=== PATIENT | male | born 2000 | race Two or more races ===

== ENCOUNTER 2021-02-18 19:33 | Inpatient (IN) | payer OTHER ==
[~2021-02-18] VITALS: Ht 175.3 cm; Wt 102.5 kg
[2021-02-18] MEDS ORDERED: ONDANSETRON PF 4 MG/2 ML VIAL. ONE (20:10)
[2021-02-18 20:13] LABS: BASO % 0 % (0-3); EOS % 0 % (0-3); HEMATOCRIT 50.2 % (39.0-53.0); HEMOGLOBIN 17.7 g/dL (13.0-17.5); LYMPH % 19 % (24-48); MEAN CORPUSCULAR HEMOGLOBIN 33 pg (25-35); MEAN CORPUSCULAR HGB CONC 35 g/dL (31-37); MEAN CORPUSCULAR VOLUME 93 fL (79-100); MONO # 0.7 x10^3/uL (0.0-1.1); MONO % 7 % (0-9); NEUT % 74 % (31-73); PLATELET COUNT 268 x10^3/uL (140-400); RED BLOOD COUNT 5.43 x10^6/uL (4.30-5.70); RED CELL DISTRIBUTION WIDTH 13.6 % (11.5-14.5); WHITE BLOOD COUNT 10.8 x10^3/uL (4.0-11.0)
[2021-02-18] MEDS ORDERED: IV NORMAL SALINE 1000ML BAG 1,000 ML IV ONE ×2 (20:30→21:30)
[2021-02-18] MEDS ORDERED: ONDANSETRON PF 4 MG/2 ML VIAL. IVP ONE (20:30)
--- NOTE | 2021-02-18 20:44 | PHYS DOC ---
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 Patient denies any diarrhea. Reports subjective fevers. Denies any use of alcohol or drugs. States he could be constipated. (THEODORE FREITAS CLIENT SERVICE MANAGER) Review of Systems: Review of Systems: Constitutional: Reports subjective fevers Eyes: Denies change in visual acuity. [] HENT: Denies nasal congestion or sore throat. [] Respiratory: Denies cough or shortness of breath. [] Cardiovascular: Denies chest pain or edema. [] GI: Reports abdominal pain, nausea and vomiting, denies diarrhea : Denies dysuria. [] Musculoskeletal: Denies back pain or joint pain. [] Integument: Denies rash. [] Neurologic: Denies headache, focal weakness or sensory changes. [] Psychiatric: Denies depression or anxiety. [] (THEODORE FREITAS CLIENT SERVICE MANAGER) Heart Score: C/O Chest Pain: N/A Risk Factors: Risk Factors: DM, Current or recent (<one month) smoker, HTN, HLP, family history of CAD, obesity. Risk Scores: Score 0 - 3: 2.5% MACE over next 6 weeks - Discharge Home Score 4 - 6: 20.3% MACE over next 6 weeks - Admit for Clinical Observation Score 7 - 10: 72.7% MACE over next 6 weeks - Early Invasive Strategies (THEODORE FREITAS CLIENT SERVICE MANAGER) Current Medications: Current Medications Medications (Trade) Dose Ordered Sig/Ghulam Start Time Stop Time Status Last Admin Dose Admin Ondansetron HCl (Zofran) 4 mg STK-MED ONCE 02/18/21 20:10 02/18/21 20:11 DC Sodium Chloride 1,000 ml @ 1,000 mls/hr 1X ONCE 02/18/21 20:30 02/18/21 21:29 02/18/21 20:14 1,000 MLS/HR (THEODORE FREITAS CLIENT SERVICE MANAGER) Allergies: Allergies: Allergies Coded Allergies Type Severity Reaction Last Updated Verified Penicillins Allergy Intermediate 02/18/21 Yes (THEODORE FREITAS CLIENT SERVICE MANAGER) Physical Exam: PE: Constitutional: Well developed, well nourished, no acute distress, non-toxic appearance. [] HENT: Normocephalic, atraumatic, bilateral external ears normal, oropharynx moist, no oral exudates, nose normal. [] Eyes: PERRLA, EOMI, conjunctiva normal, no discharge. [] Neck: Normal range of motion, no tenderness, supple, no stridor. [] Cardiovascular: Tachycardic Lungs & Thorax: Kussmaul breathing Abdomen: Bowel sounds normal, soft, no tenderness, no masses, no pulsatile mass es. [] Skin: Warm, dry, no erythema, no rash. [] Back: No tenderness, no CVA tenderness. [] Extremities: No tenderness, no cyanosis, no clubbing, ROM intact, no edema. [] Neurologic: Alert and oriented X 3, normal motor function, normal sensory function, no focal deficits noted. [] Psychologic: Restless (THEODORE FREITAS CLIENT SERVICE MANAGER) Current Patient Data: Labs: Laboratory Tests Test 02/18/21 19:55 White Blood Count 10.8 x10^3/uL (4.0-11.0) Red Blood Count 5.43 x10^6/uL (4.30-5.70) Hemoglobin 17.7 g/dL (13.0-17.5) H Hematocrit 50.2 % (39.0-53.0) Mean Corpuscular Volume 93 fL (79-100) Mean Corpuscular Hemoglobin 33 pg (25-35) Mean Corpuscular Hemoglobin Concent 35 g/dL (31-37) Red Cell Distribution Width 13.6 % (11.5-14.5) Platelet Count 268 x10^3/uL (140-400) Neutrophils (%) (Auto) 74 % (31-73) H Lymphocytes (%) (Auto) 19 % (24-48) L Monocytes (%) (Auto) 7 % (0-9) Eosinophils (%) (Auto) 0 % (0-3) Basophils (%) (Auto) 0 % (0-3) Neutrophils # (Auto) 8.0 x10^3/uL (1.8-7.7) H Lymphocytes # (Auto) 2.0 x10^3/uL (1.0-4.8) Monocytes # (Auto) 0.7 x10^3/uL (0.0-1.1) Eosinophils # (Auto) 0.0 x10^3/uL (0.0-0.7) Basophils # (Auto) 0.0 x10^3/uL (0.0-0.2) Laboratory Tests 02/18/21 19:55 Vital Signs: Vital Signs Date Time Temp Pulse Resp B/P (MAP) Pulse Ox O2 Delivery O2 Flow Rate FiO2 02/18/21 20:04 97.7 148 30 157/88 (111) 99 Room Air 97.7 (THEODORE FREITAS CLIENT SERVICE MANAGER) EKG: EKG: [] (THEODORE FREITAS CLIENT SERVICE MANAGER) Radiology/Procedures: Radiology/Procedures: []PROCEDURE: ACUTE ABDOMEN SERIES Acute abdominal series with PA chest portable at 2020: Reason for examination: Abdominal pain, fever and constipation. The heart size is normal. Mediastinum is unremarkable. Lung moreno are clear. There is however elevation of the right hemidiaphragm. No acute bony abnormalities are seen. Left venous catheter appears be present with the tip at the superior vena cava. No pneumothorax is seen. There is no gross organomegaly. Psoas muscles are symmetric. Bowel gas pattern is nonspecific with a large amount of fecal material in colon. No obstruction is evident. No abnormal calcifications are seen. No acute bony abnormalities are seen. IMPRESSION: No acute cardiopulmonary disease. Large amount fecal material within the colon but no evidence of obstruction. Electronically signed by: Geraldine Garcia MD (02/18/2021 10:19 PM) [facility] DI[facility]ATED and SIGNED BY: GERALDINE GARCIA MD DATE: 02/18/21 [id number] (THEODORE FREITAS CLIENT SERVICE MANAGER) Course & Med Decision Making: Course & Med Decision Making Pertinent Labs and Imaging studies reviewed. (See chart for details) This is a 20-year-old male patient presented to the ED today with complaints of nausea, vomiting, abdominal pain, symptoms began today. CMP with glucose of 596, anion gap is 33, CO2 7. Negative rapid Covid test, negative influenza A and B Was started on IV fluids, insulin drip. Acute abdominal series noted for constipation. Given Dulcolax in the ED, will try mag citrate once his vomiting is under control Spoke with Dr. Mcdonald who accepted patient for admission (THEODORE FREITAS APRN) Dragon Disclaimer: Dragon Disclaimer: This electronic medical record was generated, in whole or in part, using a voice recognition dictation system. (THEODORE FREITAS APRN) Departure Departure Impression: Primary Impression: DKA, type 1 Qualified Codes: E10.10 - Type 1 diabetes mellitus with ketoacidosis without coma Additional Impressions: Nausea and vomiting Qualified Codes: R11.2 - Nausea with vomiting, unspecified Constipation Qualified Codes: K59.00 - Constipation, unspecified Disposition: ADMITTED INPATIENT Condition: STABLE Referrals: UNKNOWN PCP NAME (PCP) Attending Signature Attending Signature I have reviewed the PA/EQUIPMENT SCHEDULER's note and plan of care. I was available for con sultation as needed during the patient's visit in the emergency department. I agree with the clinical impression, plan, and disposition. (OSCAR MENDOZA DO) THEODORE FREITAS APRN Feb 18, 2021 20:44 OSCAR MENDOZA DO Feb 18, 2021 23:30
[2021-02-18 20:59] LABS: ALBUMIN 5.1 g/dL (3.4-5.0); ALBUMIN/GLOBULIN RATIO 1.1 (1.0-1.7); CREATININE 1.4 mg/dL (0.7-1.3); GFR 64.6; POTASSIUM 4.4 mmol/L (3.5-5.1); TOTAL BILIRUBIN 0.8 mg/dL (0.2-1.0); TOTAL PROTEIN 9.8 g/dL (6.4-8.2)
[2021-02-18] MEDS ORDERED: POTASSIUM CHLORIDE 10MEQ 100 ML IV PRN ×2 (21:30)
[2021-02-18 21:32] LABS: INFLUENZA A PATIENT NEGATIVE (NEGATIVE); INFLUENZA B PATIENT NEGATIVE (NEGATIVE)
[2021-02-18] MEDS: METOCLOPRAMIDE HCL 10 MG/2 ML VIAL. IVP ONE ×2 (21:35→21:40)
[2021-02-18] MEDS: INSULIN REGULAR VIAL 100 UNIT in IV NORMAL SALINE 100ML 100 ML IV PRN (21:54)
[2021-02-18 22:06] LABS: BILIRUBIN,URINE NEGATIVE (NEG); CLARITY,URINE CLEAR; COLOR,URINE YELLOW; NITRITE,URINE NEGATIVE (NEG); PH,URINE 5.5 (<5.0-8.0); PROTEIN,URINE 100 mg/dL (NEG-TRACE); UROBILINOGEN,URINE 0.2 mg/dL (0.2 mg/dL)
[2021-02-18 22:12] LABS: BARBITURATES NEG (NEG); BENZODIAZEPINES NEG (NEG); CANNABINOIDS NEG (NEG); COCAINE NEG (NEG); METHADONE NEG (NEG); OPIATES NEG (NEG); PHENCYCLIDINE NEG (NEG)
[2021-02-18 22:18] LABS: AMPHETAMINE/METHAMPHETAMINE NEG (NEG)
--- NOTE | 2021-02-18 22:21 | RAD ---
Acute abdominal series with PA chest portable at 2020: Reason for examination: Abdominal pain, fever and constipation. The heart size is normal. Mediastinum is unremarkable. Lung moreno are clear. There is however elevat ion of the right hemidiaphragm. No acute bony abnormalities are seen. Left venous catheter appears be present with the tip at the superior vena cava. No pneumothorax is seen. There is no gross organomegaly. Psoas muscles are symmetric. Bowel gas pattern is nonspecific with a large amount of fecal material in colon. No obstruction is evident. No abnormal calcifications are se en. No acute bony abnormalities are seen. IMPRESSION: No acute cardiopulmonary disease. Large amount fecal material within the colon but no evidence of obstruction. Electronically signed by: Geraldine Katz MD (02/18/2021 10:19 PM) ROSS
[2021-02-18 22:22] LABS: BACTERIA,URINE 0 /HPF (0-FEW); WBC,URINE 0 /HPF (0-4)
[2021-02-18] MEDS ORDERED: METOCLOPRAMIDE HCL 10 MG/2 ML VIAL. IVP PRN (22:30)
[2021-02-18] MEDS ORDERED: fentaNYL PF VIAL 100 MCG/2 ML VIAL IVP PRN (22:30)
[2021-02-18] MEDS ORDERED: ACETAMINOPHEN 325 MG TABLET. PO PRN (22:30)
[2021-02-18] MEDS ORDERED: ONDANSETRON PF 4 MG/2 ML VIAL. IVP PRN (22:30)
[2021-02-18] MEDS ORDERED: DEXTROSE 50% 25 GM / 50ML DISP.SYRIN. IV PRN (22:30)
[2021-02-18 22:47] LABS: MAGNESIUM 2.6 mg/dL (1.8-2.4); PHOSPHORUS 5.1 mg/dL (2.6-4.7)
[2021-02-18] MEDS ORDERED: MAGNESIUM CITRATE 296 ML SOLUTION. PO ONE (23:00)
[2021-02-19] MEDS: IV NORMAL SALINE 1000ML BAG 1,000 ML IV SCH ×3 (00:02→23:12)
[2021-02-19 00:50] LABS: CALCIUM 8.6 mg/dL (8.5-10.1); CREATININE 1.2 mg/dL (0.7-1.3); GFR 77.2; POTASSIUM 3.8 mmol/L (3.5-5.1)
[2021-02-19 01:11] LABS: MAGNESIUM 2.6 mg/dL (1.8-2.4); PHOSPHORUS 2.3 mg/dL (2.6-4.7)
[2021-02-19] MEDS: POTASSIUM CHLORIDE 10MEQ 100 ML IV PRN ×2 (02:21→03:28)
[2021-02-19] MEDS ORDERED: IV DEXTROSE 5 %-0.45 % NACL 1,000 ML IV ONE ×2 (03:30→18:00)
[2021-02-19 04:44] LABS: CALCIUM 8.1 mg/dL (8.5-10.1); CREATININE 0.9 mg/dL (0.7-1.3); GFR 107.6; POTASSIUM 3.6 mmol/L (3.5-5.1)
[2021-02-19 04:47] LABS: MAGNESIUM 2.2 mg/dL (1.8-2.4); PHOSPHORUS 0.8 mg/dL (2.6-4.7)
[2021-02-19] MEDS: IV DEXTROSE 5% - 0.9 % NACL 1,000 ML IV SCH ×4 (08:18→21:48)
--- NOTE | 2021-02-19 09:02 | PDOC1 ---
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 Denies any fevers, chest pain, drug use, diarrhea, constipation, hematuria or dysuria or skin infections. Patient does not know his father's side and whether he or the family has diabetes. Mother side has no history of diabetes. Past Medical/Surgical History: PMH/PSH: Additional Past Medical Histor: "TUMOR ON MY SPINE" Past Surgical History: SPINE TUMOR REMOVAL Smoking Status: Never Smoker Alcohol Use: None Allergies: Allergies: Coded Allergies: Penicillins (Verified Allergy, Intermediate, 02/18/21) Family History: Family History: Reviewed with no relevant findings in the chart Social History: Social History: Smoking Status: Never Smoker Alcohol Use: None Current Medications: Current Medications Current Medications Sodium Chloride 1,000 ml @ 1,000 mls/hr 1X ONCE IV Last administered on 02/18/21at 20:14; Start 02/18/21 at 20:30; Stop 02/18/21 at 21:29; Status DC Ondansetron HCl (Zofran) 4 mg 1X ONCE IVP Last administered on 02/18/21at 20:14; Start 02/18/21 at 20:30; Stop 02/18/21 at 20:31; Status DC Ondansetron HCl (Zofran) 4 mg STK-MED ONCE .ROUTE ; Start 02/18/21 at 20:10; Stop 02/18/21 at 20:11; Status DC Metoclopramide HCl (Reglan Vial) 10 mg 1X ONCE IVP Last administered on 02/18/21at 21:40; Start 02/18/21 at 21:30; Stop 02/18/21 at 21:31; Status DC Sodium Chloride 1,000 ml @ 1,000 mls/hr 1X ONCE IV Last administered on 02/18/21at 21:35; Start 02/18/21 at 21:30; Stop 02/18/21 at 22:29; Status DC Sodium Chloride 1,000 ml @ 250 mls/hr Q4H IV Last administered on 02/19/21at 00:02; Start 02/18/21 at 22:00 Insulin Human Regular 100 unit/ Sodium Chloride 101 ml @ 0 mls/hr CONT PRN PRN IV PER PROTOCOL Last administered on 02/18/21at 21:54; Start 02/18/21 at 21:30 Potassium Chloride/Water 100 ml @ 100 mls/hr PRN Q1HR PRN IV SEE COMMENTS; Start 02/18/21 at 21:30 Potassium Chloride/Water 100 ml @ 100 mls/hr PRN Q1HR PRN IV SEE COMMENTS Last administered on 02/19/21at 03:28; Start 02/18/21 at 21:30 Potassium Chloride/Water 100 ml @ 100 mls/hr PRN Q1HR PRN IV SEE COMMENTS; Start 02/18/21 at 21:30 Ondansetron HCl (Zofran) 4 mg PRN Q8HRS PRN IVP NAUSEA/VOMITING 1ST CHOICE; Start 02/18/21 at 22:30; Stop 02/19/21 at 22:29 Fentanyl Citrate (Fentanyl 2ml Vial) 50 mcg PRN Q1HR PRN IVP SEVERE PAIN 7-10; Start 02/18/21 at 22:30; Stop 02/19/21 at 22:29 Acetaminophen (Tylenol) 650 mg PRN Q4HRS PRN PO FEVER > 100.3'F; Start 02/18/21 at 22:30; Stop 02/19/21 at 22:29 Magnesium Citrate (Citroma) 296 ml 1X ONCE PO Last administered on 02/19/21at 00:10; Start 02/18/21 at 23:00; Stop 02/18/21 at 23:01; Status DC Metoclopramide HCl (Reglan Vial) 10 mg PRN Q6HRS PRN IVP NAUSEA/VOMITING 2ND CHOICE Last administered on 02/19/21at 00:10; Start 02/18/21 at 22:30 Dextrose (Dextrose 50%-Water Syringe) 12.5 gm PRN Q15MIN PRN IV SEE COMMENTS; Start 02/18/21 at 22:30 Lorazepam (Ativan Inj) 1 mg 1X ONCE IVP Last administered on 02/19/21at 00:44; Start 02/19/21 at 01:00; Stop 02/19/21 at 01:01; Status DC Dextrose/Sodium Chloride 1,000 ml @ 250 mls/hr 1X ONCE IV Last administered on 02/19/21at 03:28; Start 02/19/21 at 03:30; Stop 02/19/21 at 07:29; Status DC Dextrose/Sodium Chloride 1,000 ml @ 250 mls/hr Q4H IV Last administered on 02/19/21at 08:18; Start 02/19/21 at 08:15 ROS: Review of Systems Review of System REVIEW OF SYSTEMS: GENERAL: Denies weakness SKIN: No bruising, hair changes or rashes. EYES: No blurred, double or loss of vision. NOSE AND THROAT: No history of nosebleeds, hoarseness or sore throat. HEART: No history of palpitations, chest pain or shortness of breath on exertion. LUNGS: Denies cough, hemoptysis, wheezing or shortness of breath. GASTROINTESTINAL: Denies changes in appetite, nausea, vomiting, diarrhea or constipation. GENITOURINARY: No history of frequency, urgency, hesitancy or nocturia. NEUROLOGIC: Denies history of numbness, tingling, or tremor. PSYCHIATRIC: No history of panic, anxiety or depression. ENDOCRINE: No history of heat or cold intolerance, polyuria or polydipsia. EXTREMITIES: Denies joint pain, pain on walking or stiffness. Physical Exam: Vital Signs: Vital Signs Date Time Temp Pulse Resp B/P (MAP) Pulse Ox O2 Delivery O2 Flow Rate FiO2 02/19/21 06:45 110 22 145/72 (96) 98 Room Air 02/18/21 20:04 97.7 97.7 Physcial Exam: General: Well developed, well nourished, no acute distress, well appearing HEENT: Pupils equally round and reactive to light, EOMI, no discharge, normal conjunctiva Neck: Supple, no nuchal rigidity, no JVD, trachea midline, no tenderness Cardiac: RRR, no murmurs, no gallops, no rubs Chest/Lungs: CTAB, no wheeze, no rhonchi, no crackles Abdomen: soft, non-distended, no guarding, no peritoneal signs, non-tender Back: No tenderness Extremities: no edema, pulses intact, non-tender,capillary refill <3 sec bilateral upper and lower extremities, Neuro: Alert and oriented x 4, no focal deficits, normal speech Labs: Labs: Laboratory Tests Test 02/18/21 19:55 02/18/21 20:15 02/18/21 21:50 02/18/21 22:54 White Blood Count 10.8 x10^3/uL (4.0-11.0) Red Blood Count 5.43 x10^6/uL (4.30-5.70) Hemoglobin 17.7 g/dL (13.0-17.5) Hematocrit 50.2 % (39.0-53.0) Mean Corpuscular Volume 93 fL (79-100) Mean Corpuscular Hemoglobin 33 pg (25-35) Mean Corpuscular Hemoglobin Concent 35 g/dL (31-37) Red Cell Distribution Width 13.6 % (11.5-14.5) Platelet Count 268 x10^3/uL (140-400) Neutrophils (%) (Auto) 74 % (31-73) Lymphocytes (%) (Auto) 19 % (24-48) Monocytes (%) (Auto) 7 % (0-9) Eosinophils (%) (Auto) 0 % (0-3) Basophils (%) (Auto) 0 % (0-3) Neutrophils # (Auto) 8.0 x10^3/uL (1.8-7.7) Lymphocytes # (Auto) 2.0 x10^3/uL (1.0-4.8) Monocytes # (Auto) 0.7 x10^3/uL (0.0-1.1) Eosinophils # (Auto) 0.0 x10^3/uL (0.0-0.7) Basophils # (Auto) 0.0 x10^3/uL (0.0-0.2) Sodium Level 133 mmol/L (136-145) Potassium Level 4.4 mmol/L (3.5-5.1) Chloride Level 93 mmol/L (98-107) Carbon Dioxide Level 7 mmol/L (21-32) Anion Gap 33 (6-14) Blood Urea Nitrogen 13 mg/dL (8-26) Creatinine 1.4 mg/dL (0.7-1.3) Estimated GFR (Cockcroft-Gault) 64.6 BUN/Creatinine Ratio 9 (6-20) Glucose Level 596 mg/dL (70-99) Calcium Level 9.0 mg/dL (8.5-10.1) Phosphorus Level 5.1 mg/dL (2.6-4.7) Magnesium Level 2.6 mg/dL (1.8-2.4) Total Bilirubin 0.8 mg/dL (0.2-1.0) Aspartate Amino Transf (AST/SGOT) 48 U/L (15-37) Alanine Aminotransferase (ALT/SGPT) 244 U/L (16-63) Alkaline Phosphatase 318 U/L (46-116) Total Protein 9.8 g/dL (6.4-8.2) Albumin 5.1 g/dL (3.4-5.0) Albumin/Globulin Ratio 1.1 (1.0-1.7) Lipase 141 U/L (73-393) Ethyl Alcohol Level < 10 mg/dL (0-10) Influenza Type A Antigen Negative (NEGATIVE) Influenza Type B Antigen Negative (NEGATIVE) SARS-CoV-2 Antigen (Rapid) Negative (NEGATIVE) Urine Collection Type Unknown Urine Color Yellow Urine Clarity Clear Urine pH 5.5 (<5.0-8.0) Urine Specific Ewen >=1.030 (1.000-1.030) Urine Protein 100 mg/dL (NEG-TRACE) Urine Glucose (UA) >=1000 mg/dL (NEG) Urine Ketones (Stick) >=80 mg/dL (NEG) Urine Blood Moderate (NEG) Urine Nitrite Negative (NEG) Urine Bilirubin Negative (NEG) Urine Urobilinogen Dipstick 0.2 mg/dL (0.2 mg/dL) Urine Leukocyte Esterase Negative (NEG) Urine RBC 1-2 /HPF (0-2) Urine WBC 0 /HPF (0-4) Urine Squamous Epithelial Cells Occ /LPF Urine Bacteria 0 /HPF (0-FEW) Urine Mucus Slight /LPF Urine Opiates Screen Neg (NEG) Urine Methadone Screen Neg (NEG) Urine Barbiturates Neg (NEG) Urine Phencyclidine Screen Neg (NEG) Urine Amphetamine/Methamphetamine Neg (NEG) Urine Benzodiazepines Screen Neg (NEG) Urine Cocaine Screen Neg (NEG) Urine Cannabinoids Screen Neg (NEG) Urine Ethyl Alcohol Neg (NEG) Glucose (Fingerstick) 394 mg/dL (70-99) Test 02/18/21 23:59 02/19/21 00:08 02/19/21 00:15 02/19/21 01:03 Glucose (Fingerstick) 375 mg/dL (70-99) 309 mg/dL (70-99) Phosphorus Level 2.3 mg/dL (2.6-4.7) Magnesium Level 2.6 mg/dL (1.8-2.4) Sodium Level 140 mmol/L (136-145) Potassium Level 3.8 mmol/L (3.5-5.1) Chloride Level 102 mmol/L (98-107) Carbon Dioxide Level 9 mmol/L (21-32) Anion Gap 29 (6-14) Blood Urea Nitrogen 12 mg/dL (8-26) Creatinine 1.2 mg/dL (0.7-1.3) Estimated GFR (Cockcroft-Gault) 77.2 Glucose Level 359 mg/dL (70-99) Calcium Level 8.6 mg/dL (8.5-10.1) Test 02/19/21 02:10 02/19/21 03:15 02/19/21 04:20 02/19/21 05:48 Glucose (Fingerstick) 285 mg/dL (70-99) 189 mg/dL (70-99) 236 mg/dL (70-99) 208 mg/dL (70-99) Sodium Level 137 mmol/L (136-145) Potassium Level 3.6 mmol/L (3.5-5.1) Chloride Level 104 mmol/L (98-107) Carbon Dioxide Level 9 mmol/L (21-32) Anion Gap 24 (6-14) Blood Urea Nitrogen 10 mg/dL (8-26) Creatinine 0.9 mg/dL (0.7-1.3) Estimated GFR (Cockcroft-Gault) 107.6 Glucose Level 247 mg/dL (70-99) Calcium Level 8.1 mg/dL (8.5-10.1) Phosphorus Level 0.8 mg/dL (2.6-4.7) Magnesium Level 2.2 mg/dL (1.8-2.4) Test 02/19/21 06:53 02/19/21 07:58 Glucose (Fingerstick) 236 mg/dL (70-99) 199 mg/dL (70-99) Laboratory Tests Test 02/18/21 19:55 02/18/21 20:15 02/18/21 21:50 02/18/21 22:54 White Blood Count 10.8 x10^3/uL (4.0-11.0) Red Blood Count 5.43 x10^6/uL (4.30-5.70) Hemoglobin 17.7 g/dL (13.0-17.5) Hematocrit 50.2 % (39.0-53.0) Mean Corpuscular Volume 93 fL (79-100) Mean Corpuscular Hemoglobin 33 pg (25-35) Mean Corpuscular Hemoglobin Concent 35 g/dL (31-37) Red Cell Distribution Width 13.6 % (11.5-14.5) Platelet Count 268 x10^3/uL (140-400) Neutrophils (%) (Auto) 74 % (31-73) Lymphocytes (%) (Auto) 19 % (24-48) Monocytes (%) (Auto) 7 % (0-9) Eosinophils (%) (Auto) 0 % (0-3) Basophils (%) (Auto) 0 % (0-3) Neutrophils # (Auto) 8.0 x10^3/uL (1.8-7.7) Lymphocytes # (Auto) 2.0 x10^3/uL (1.0-4.8) Monocytes # (Auto) 0.7 x10^3/uL (0.0-1.1) Eosinophils # (Auto) 0.0 x10^3/uL (0.0-0.7) Basophils # (Auto) 0.0 x10^3/uL (0.0-0.2) Sodium Level 133 mmol/L (136-145) Potassium Level 4.4 mmol/L (3.5-5.1) Chloride Level 93 mmol/L (98-107) Carbon Dioxide Level 7 mmol/L (21-32) Anion Gap 33 (6-14) Blood Urea Nitrogen 13 mg/dL (8-26) Creatinine 1.4 mg/dL (0.7-1.3) Estimated GFR (Cockcroft-Gault) 64.6 BUN/Creatinine Ratio 9 (6-20) Glucose Level 596 mg/dL (70-99) Calcium Level 9.0 mg/dL (8.5-10.1) Phosphorus Level 5.1 mg/dL (2.6-4.7) Magnesium Level 2.6 mg/dL (1.8-2.4) Total Bilirubin 0.8 mg/dL (0.2-1.0) Aspartate Amino Transf (AST/SGOT) 48 U/L (15-37) Alanine Aminotransferase (ALT/SGPT) 244 U/L (16-63) Alkaline Phosphatase 318 U/L (46-116) Total Protein 9.8 g/dL (6.4-8.2) Albumin 5.1 g/dL (3.4-5.0) Albumin/Globulin Ratio 1.1 (1.0-1.7) Lipase 141 U/L (73-393) Ethyl Alcohol Level < 10 mg/dL (0-10) Influenza Type A Antigen Negative (NEGATIVE) Influenza Type B Antigen Negative (NEGATIVE) SARS-CoV-2 Antigen (Rapid) Negative (NEGATIVE) Urine Collection Type Unknown Urine Color Yellow Urine Clarity Clear Urine pH 5.5 (<5.0-8.0) Urine Specific Ewen >=1.030 (1.000-1.030) Urine Protein 100 mg/dL (NEG-TRACE) Urine Glucose (UA) >=1000 mg/dL (NEG) Urine Ketones (Stick) >=80 mg/dL (NEG) Urine Blood Moderate (NEG) Urine Nitrite Negative (NEG) Urine Bilirubin Negative (NEG) Urine Urobilinogen Dipstick 0.2 mg/dL (0.2 mg/dL) Urine Leukocyte Esterase Negative (NEG) Urine RBC 1-2 /HPF (0-2) Urine WBC 0 /HPF (0-4) Urine Squamous Epithelial Cells Occ /LPF Urine Bacteria 0 /HPF (0-FEW) Urine Mucus Slight /LPF Urine Opiates Screen Neg (NEG) Urine Methadone Screen Neg (NEG) Urine Barbiturates Neg (NEG) Urine Phencyclidine Screen Neg (NEG) Urine Amphetamine/Methamphetamine Neg (NEG) Urine Benzodiazepines Screen Neg (NEG) Urine Cocaine Screen Neg (NEG) Urine Cannabinoids Screen Neg (NEG) Urine Ethyl Alcohol Neg (NEG) Glucose (Fingerstick) 394 mg/dL (70-99) Test 02/18/21 23:59 02/19/21 00:08 02/19/21 00:15 02/19/21 01:03 Glucose (Fingerstick) 375 mg/dL (70-99) 309 mg/dL (70-99) Phosphorus Level 2.3 mg/dL (2.6-4.7) Magnesium Level 2.6 mg/dL (1.8-2.4) Sodium Level 140 mmol/L (136-145) Potassium Level 3.8 mmol/L (3.5-5.1) Chloride Level 102 mmol/L (98-107) Carbon Dioxide Level 9 mmol/L (21-32) Anion Gap 29 (6-14) Blood Urea Nitrogen 12 mg/dL (8-26) Creatinine 1.2 mg/dL (0.7-1.3) Estimated GFR (Cockcroft-Gault) 77.2 Glucose Level 359 mg/dL (70-99) Calcium Level 8.6 mg/dL (8.5-10.1) Test 02/19/21 02:10 02/19/21 03:15 02/19/21 04:20 02/19/21 05:48 Glucose (Fingerstick) 285 mg/dL (70-99) 189 mg/dL (70-99) 236 mg/dL (70-99) 208 mg/dL (70-99) Sodium Level 137 mmol/L (136-145) Potassium Level 3.6 mmol/L (3.5-5.1) Chloride Level 104 mmol/L (98-107) Carbon Dioxide Level 9 mmol/L (21-32) Anion Gap 24 (6-14) Blood Urea Nitrogen 10 mg/dL (8-26) Creatinine 0.9 mg/dL (0.7-1.3) Estimated GFR (Cockcroft-Gault) 107.6 Glucose Level 247 mg/dL (70-99) Calcium Level 8.1 mg/dL (8.5-10.1) Phosphorus Level 0.8 mg/dL (2.6-4.7) Magnesium Level 2.2 mg/dL (1.8-2.4) Test 02/19/21 06:53 02/19/21 07:58 Glucose (Fingerstick) 236 mg/dL (70-99) 199 mg/dL (70-99) Images: Images PROCEDURE: ACUTE ABDOMEN SERIES Acute abdominal series with PA chest portable at 2020: Reason for examination: Abdominal pain, fever and constipation. The heart size is normal. Mediastinum is unremarkable. Lung moreno are clear. There is however elevation of the right hemidiaphragm. No acute bony abnormalities are seen. Left venous catheter appears be present with the tip at the superior vena cava. No pneumothorax is seen. There is no gross organomegaly. Psoas muscles are symmetric. Bowel gas pattern is nonspecific with a large amount of fecal material in colon. No obstruction is evident. No abnormal calcifications are seen. No acute bony abnormalities are seen. IMPRESSION: No acute cardiopulmonary disease. Large amount fecal material within the colon but no evidence of obstruction. Assessment/Plan Assessment/Plan Intractable nausea vomiting secondary to DKA without delirium Severe dehydration and volume depletion SUNSHINE due to vasomotor nephropathy Hyperglycemia Transaminitis New onset diabetes mellitus Constipation Admit to ICU for further management ABG on admission pending urine and blood ketones Pending plasma osmolarity Continue serial inspections and examination for sources that caused ketoacidotic state Continue IV insulin starting at 0.1 units per kg When glucose is less than 200, AG is closed, patient able to eat, and HCO3 greater than 15, then transition with subcu insulin 0.1 units/kg every 2 hours for at least 2 hours Continue IV fluids of 1 to 1.5 L/h until a total of 5 L is replenished Switch to one half NS at half the rate if NA is normal or elevated As needed D50 W or add D5 to IV fluids if Accu-Cheks are less than 200 Maintain potassium between 3.5-5, if potassium falls below 3.3, stop insulin and add 40 mEq/h of potassium Maintained p.o. 3 greater than 1.0 If arterial pH is below 6.9, give 100 mEq of sodium bicarb +20 mEq of potassium Every 2-4 hours BMP and a be checked until stable Every hour Accu-Cheks while on insulin A total of 45 minutes of critical care time was spent in reviewing chart, labs, and images. Discussed with RN and SW. Justifications for Admission Other Justification BRANDI KAISER MD Feb 19, 2021 09:02
[2021-02-19 09:28] LABS: CALCIUM 8.2 mg/dL (8.5-10.1); GFR 95.3; POTASSIUM 3.2 mmol/L (3.5-5.1)
[2021-02-19 09:31] LABS: PHOSPHORUS 1.3 mg/dL (2.6-4.7)
[2021-02-19] MEDS ORDERED: SODIUM PHOSPHATE 20 MMOL in IV NORMAL SALINE 250ML 250 ML IV ONE (10:30)
[2021-02-19] MEDS: POTASSIUM CHLORIDE 10MEQ 100 ML IV SCH ×6 (10:37→22:32)
[2021-02-19] MEDS: POLYETHYLENE GLYCOL 3350 17 GM PACKET. PO SCH ×2 (12:00→23:12)
[2021-02-19] MEDS: INSULIN REGULAR VIAL 100 UNIT in IV NORMAL SALINE 100ML 100 ML IV PRN ×3 (13:07→23:15)
[2021-02-19 16:53] LABS: CALCIUM 7.9 mg/dL (8.5-10.1); CREATININE 0.8 mg/dL (0.7-1.3); GFR 123.2
[2021-02-19 16:54] LABS: MAGNESIUM 1.7 mg/dL (1.8-2.4); PHOSPHORUS 1.3 mg/dL (2.6-4.7)
[2021-02-19 16:56] LABS: POTASSIUM 2.8 mmol/L (3.5-5.1)
[2021-02-19] MEDS ORDERED: MAGNESIUM SULFATE 2GM 50 ML IV ONE (17:30)
[2021-02-19] MEDS: POTASSIUM CHLORIDE 20 MEQ TABLET.ER. PO SCH ×2 (17:37→19:54)
[2021-02-19 20:59] LABS: CALCIUM 7.5 mg/dL (8.5-10.1); CREATININE 0.8 mg/dL (0.7-1.3); GFR 123.2; MAGNESIUM 2.1 mg/dL (1.8-2.4); PHOSPHORUS 1.5 mg/dL (2.6-4.7)
[2021-02-19 21:01] LABS: POTASSIUM 2.6 mmol/L (3.5-5.1)
[2021-02-19] MEDS ORDERED: SODIUM PHOSPHATE 40 MMOL in IV NORMAL SALINE 250ML 250 ML IV ONE (22:00)
[2021-02-19 23:07] LABS: HEMOGLOBIN A1C 12.5 % (4.8-5.6)
[2021-02-19 23:21] VITALS: BP 140/87
[2021-02-20] VITALS (12 sets, daily range): BP systolic 123–144; BP diastolic 66–94
[2021-02-20] MEDS: POTASSIUM CHLORIDE 10MEQ 100 ML IV SCH ×7 (00:01→10:43)
[2021-02-20] MEDS: POLYETHYLENE GLYCOL 3350 17 GM PACKET. PO SCH ×2 (00:23→09:53)
[2021-02-20] MEDS: IV DEXTROSE 5% - 0.9 % NACL 1,000 ML IV SCH ×3 (01:00→08:15)
[2021-02-20] MEDS: IV NORMAL SALINE 1000ML BAG 1,000 ML IV SCH ×2 (01:01→05:53)
[2021-02-20] MEDS: INSULIN REGULAR VIAL 100 UNIT in IV NORMAL SALINE 100ML 100 ML IV PRN (04:08)
[2021-02-20 07:54] LABS: CALCIUM 8.3 mg/dL (8.5-10.1); CREATININE 0.6 mg/dL (0.7-1.3); GFR 171.8; MAGNESIUM 1.9 mg/dL (1.8-2.4); PHOSPHORUS 2.5 mg/dL (2.6-4.7)
[2021-02-20 07:56] LABS: POTASSIUM 2.7 mmol/L (3.5-5.1)
[2021-02-20] MEDS ORDERED: INSU100I13 SQ (08:30)
[2021-02-20] MEDS ORDERED: INSULIN NPH/REG HUM 70/30 300 UNITS/3 ML VIAL. SQ SCH (08:30)
[2021-02-20] MEDS ORDERED: INSU100I17 SQ (08:34)
[2021-02-20] MEDS ORDERED: BLOO-1521 MC (08:34)
--- NOTE | 2021-02-20 08:36 | PDOC ---
[employer] PROGRESS NOTE Date of Service DOS: DATE: 02/20/21 TIME: 08:27 Chief Complaint Chief Complaint Intractable nausea vomiting secondary to DKA without delirium Severe dehydration and volume depletion SUNSHINE due to vasomotor nephropathy Hyperglycemia Transaminitis New onset diabetes mellitus - A1c 12.5 Constipation Thrush - nystatin swsw Admit to ICU for further management ABG on admission pending urine and blood ketones Pending plasma osmolarity Continue serial inspections and examination for sources that caused ketoacidotic state Continue IV insulin starting at 0.1 units per kg When glucose is less than 200, AG is closed, patient able to eat, and HCO3 greater than 15, then transition with subcu insulin 0.1 units/kg every 2 hours for at least 2 hours Continue IV fluids of 1 to 1.5 L/h until a total of 5 L is replenished Switch to one half NS at half the rate if NA is normal or elevated As needed D50 W or add D5 to IV fluids if Accu-Cheks are less than 200 Maintain potassium between 3.5-5, if potassium falls below 3.3, stop insulin and add 40 mEq/h of potassium Maintained p.o. 3 greater than 1.0 If arterial pH is below 6.9, give 100 mEq of sodium bicarb +20 mEq of potassium Every 2-4 hours BMP and a be checked until stable Every hour Accu-Cheks while on insulin History of Present Illness History of Present Illness Mr Amezquita is a 20yo male with PMHx spinal desmoid tumor, obesity who comes to ED 02/18/2021 c/o intractable nausea and vomiting, found in DKA. Treated with insulin GTT. Denies any fevers, chest pain, drug use, diarrhea, constipation, hematuria or dysuria or skin infections. Patient does not know his father's side and whether he or the family has diabetes. Mother side has no history of diabetes. 12: Gap 19 overnight. He does note polydipsia and polyuria going on for several months. K2.7, Phos 2.5. He notes an appetite with nausea. He notes he sore throat and pain on swallowing. Vitals/I&O Vitals/I&O: Vital Signs Date Time Temp Pulse Resp B/P (MAP) Pulse Ox O2 Delivery O2 Flow Rate FiO2 02/20/21 06:05 85 18 140/84 (102) 97 Room Air 02/20/21 04:15 99.2 99.2 I & O 02/19/21 02/19/21 02/20/21 15:00 23:00 07:00 Intake Total 1456.6667 ml 1200 ml 2150 ml Output Total 900 ml Balance 1456.6667 ml 1200 ml 1250 ml Physical Exam General: Alert, Oriented X3, Cooperative Heart: Regular rate, Normal S1, Normal S2 Lungs: Clear Abdomen: Normal bowel sounds, Soft Extremities: No clubbing, No cyanosis Skin: No rashes, No breakdown Labs Labs: Laboratory Tests Test 02/19/21 08:40 02/19/21 09:08 02/19/21 10:39 02/19/21 11:59 Sodium Level 139 mmol/L (136-145) Potassium Level 3.2 mmol/L (3.5-5.1) Chloride Level 105 mmol/L (98-107) Carbon Dioxide Level 15 mmol/L (21-32) Anion Gap 19 (6-14) Blood Urea Nitrogen 7 mg/dL (8-26) Creatinine 1.0 mg/dL (0.7-1.3) Estimated GFR (Cockcroft-Gault) 95.3 Glucose Level 165 mg/dL (70-99) Calcium Level 8.2 mg/dL (8.5-10.1) Phosphorus Level 1.3 mg/dL (2.6-4.7) Magnesium Level 2.0 mg/dL (1.8-2.4) Glucose (Fingerstick) 170 mg/dL (70-99) 200 mg/dL (70-99) 191 mg/dL (70-99) Test 02/19/21 13:09 02/19/21 14:25 02/19/21 16:30 02/19/21 17:15 Glucose (Fingerstick) 135 mg/dL (70-99) 197 mg/dL (70-99) 141 mg/dL (70-99) Sodium Level 140 mmol/L (136-145) Potassium Level 2.8 mmol/L (3.5-5.1) Chloride Level 106 mmol/L (98-107) Carbon Dioxide Level 19 mmol/L (21-32) Anion Gap 15 (6-14) Blood Urea Nitrogen 7 mg/dL (8-26) Creatinine 0.8 mg/dL (0.7-1.3) Estimated GFR (Cockcroft-Gault) 123.2 Glucose Level 185 mg/dL (70-99) Calcium Level 7.9 mg/dL (8.5-10.1) Phosphorus Level 1.3 mg/dL (2.6-4.7) Magnesium Level 1.7 mg/dL (1.8-2.4) Test 02/19/21 18:27 02/19/21 19:41 02/19/21 20:19 02/19/21 20:30 Glucose (Fingerstick) 121 mg/dL (70-99) 169 mg/dL (70-99) 222 mg/dL (70-99) Sodium Level 139 mmol/L (136-145) Potassium Level 2.6 mmol/L (3.5-5.1) Chloride Level 104 mmol/L (98-107) Carbon Dioxide Level 19 mmol/L (21-32) Anion Gap 16 (6-14) Blood Urea Nitrogen 7 mg/dL (8-26) Creatinine 0.8 mg/dL (0.7-1.3) Estimated GFR (Cockcroft-Gault) 123.2 Glucose Level 220 mg/dL (70-99) Calcium Level 7.5 mg/dL (8.5-10.1) Phosphorus Level 1.5 mg/dL (2.6-4.7) Magnesium Level 2.1 mg/dL (1.8-2.4) Test 02/19/21 20:46 02/19/21 21:43 02/19/21 22:53 02/20/21 00:05 Glucose (Fingerstick) 236 mg/dL (70-99) 198 mg/dL (70-99) 151 mg/dL (70-99) 182 mg/dL (70-99) Test 02/20/21 01:05 02/20/21 02:09 02/20/21 03:05 02/20/21 03:59 Glucose (Fingerstick) 226 mg/dL (70-99) 179 mg/dL (70-99) 153 mg/dL (70-99) 133 mg/dL (70-99) Test 02/20/21 05:05 02/20/21 05:58 02/20/21 06:55 02/20/21 07:03 Glucose (Fingerstick) 113 mg/dL (70-99) 112 mg/dL (70-99) 109 mg/dL (70-99) Sodium Level 141 mmol/L (136-145) Potassium Level 2.7 mmol/L (3.5-5.1) Chloride Level 108 mmol/L (98-107) Carbon Dioxide Level 19 mmol/L (21-32) Anion Gap 14 (6-14) Blood Urea Nitrogen 3 mg/dL (8-26) Creatinine 0.6 mg/dL (0.7-1.3) Estimated GFR (Cockcroft-Gault) 171.8 Glucose Level 125 mg/dL (70-99) Calcium Level 8.3 mg/dL (8.5-10.1) Phosphorus Level 2.5 mg/dL (2.6-4.7) Magnesium Level 1.9 mg/dL (1.8-2.4) Test 02/20/21 08:18 Glucose (Fingerstick) 124 mg/dL (70-99) Assessment and Plan Assessmemt and Plan Problems Medical Problems: (1) Constipation Status: Acute (2) DKA, type 1 Status: Acute (3) Nausea and vomiting Status: Acute Comment Review of Relevant I have reviewed the following items arsenio (where applicable) has been applied. Medications: Current Medications Medications (Trade) Dose Ordered Sig/Hgulam Route PRN Reason Start Time Stop Time Status Last Admin Dose Admin Sodium Phosphate 20 mmol/Sodium Chloride 256.6667 ml @ 64.167 m... 1X ONCE IV 02/19/21 10:30 02/19/21 14:29 DC 02/19/21 10:43 Potassium Chloride/Water 100 ml @ 100 mls/hr Q1H IV 02/19/21 10:30 02/19/21 14:29 DC 02/19/21 14:47 Magnesium Sulfate 50 ml @ 25 mls/hr 1X ONCE IV 02/19/21 17:30 02/19/21 19:29 DC 02/19/21 17:39 Potassium Chloride (Klor-Con) 40 meq Q2H PO 02/19/21 17:30 02/19/21 19:31 DC 02/19/21 19:54 Dextrose/Sodium Chloride 1,000 ml @ 250 mls/hr 1X ONCE IV 02/19/21 18:00 02/19/21 21:59 DC 02/19/21 17:31 Potassium Chloride/Water 100 ml @ 100 mls/hr Q1H IV 02/19/21 22:00 02/20/21 05:59 DC 02/20/21 03:02 Sodium Phosphate 40 mmol/Sodium Chloride 263.3333 ml @ 50 mls/hr 1X ONCE IV 02/19/21 22:00 02/20/21 03:15 DC 02/19/21 21:35 Justifications for Admission Other Justification DARRYL BAJWA MD Feb 20, 2021 08:36
[2021-02-20] MEDS: NYSTATIN 100,000 UNITS/ML 5 ML ORAL.SUSP. SWSW SCH ×4 (08:43→21:03)
[2021-02-20] MEDS ORDERED: POTASSIUM CHLORIDE 20 MEQ TABLET.ER. PO ONE ×3 (09:00→18:00)
[2021-02-20] MEDS ORDERED: POTASSIUM & SODIUM PHOSPHATES PACKET. PO SCH (09:00)
[2021-02-20] MEDS ORDERED: IV NORMAL SALINE 1000ML BAG 1,000 ML IV ONE (09:45)
[2021-02-20] MEDS: INSULIN LISPRO 300 UNITS/3 ML VIAL. SQ SCH ×3 (12:56→18:05)
--- NOTE | 2021-02-20 14:30 | NUR ---
SS following for discharge planning. SS reviewed pt chart and discussed with pt RN. Pt is from home and is currently on room air. COVID19 negative. Transfer orders on the chart for Med Surg. Discharge plan is currently to home when medically ready for discharge. SS will continue to follow for discharge planning.
[2021-02-20 16:32] LABS: CALCIUM 7.3 mg/dL (8.5-10.1); CREATININE 0.6 mg/dL (0.7-1.3); GFR 171.8; POTASSIUM 3.2 mmol/L (3.5-5.1)
[2021-02-20] MEDS ORDERED: INSULIN GLARGINE SYRINGE. SQ SCH (21:00)
[2021-02-21 00:25] VITALS: BP 124/85
[2021-02-21 04:00] VITALS: BP 141/67
[2021-02-21 06:59] LABS: CALCIUM 8.2 mg/dL (8.5-10.1); CREATININE 0.6 mg/dL (0.7-1.3); GFR 171.8; MAGNESIUM 1.9 mg/dL (1.8-2.4); PHOSPHORUS 3.1 mg/dL (2.6-4.7); POTASSIUM 3.4 mmol/L (3.5-5.1)
[2021-02-21] MEDS ORDERED: POTASSIUM CHLORIDE 20 MEQ TABLET.ER. PO ONE (08:45)
[2021-02-21] MEDS ORDERED: INSULIN GLARGINE SYRINGE. SQ ONE (08:45)
[2021-02-21] MEDS: INSULIN LISPRO 300 UNITS/3 ML VIAL. SQ SCH ×4 (08:48→13:02)
--- NOTE | 2021-02-21 08:49 | PDOC ---
[employer] PROGRESS NOTE Date of Service DOS: DATE: 02/21/21 TIME: 08:48 Chief Complaint Chief Complaint Intractable nausea vomiting secondary to DKA without delirium Severe dehydration and volume depletion SUNSHINE due to vasomotor nephropathy Hyperglycemia Transaminitis New onset diabetes mellitus - A1c 12.5 Constipation Thrush - nystatin swsw Admit to ICU for further management ABG on admission pending urine and blood ketones Pending plasma osmolarity Continue serial inspections and examination for sources that caused ketoacidotic state Continue IV insulin starting at 0.1 units per kg When glucose is less than 200, AG is closed, patient able to eat, and HCO3 greater than 15, then transition with subcu insulin 0.1 units/kg every 2 hours for at least 2 hours Continue IV fluids of 1 to 1.5 L/h until a total of 5 L is replenished Switch to one half NS at half the rate if NA is normal or elevated As needed D50 W or add D5 to IV fluids if Accu-Cheks are less than 200 Maintain potassium between 3.5-5, if potassium falls below 3.3, stop insulin and add 40 mEq/h of potassium Maintained p.o. 3 greater than 1.0 If arterial pH is below 6.9, give 100 mEq of sodium bicarb +20 mEq of potassium Every 2-4 hours BMP and a be checked until stable Every hour Accu-Cheks while on insulin History of Present Illness History of Present Illness Mr Amezquita is a 20yo male with PMHx spinal desmoid tumor, obesity who comes to ED 02/18/2021 c/o intractable nausea and vomiting, found in DKA. Treated with insulin GTT. Denies any fevers, chest pain, drug use, diarrhea, constipation, hematuria or dysuria or skin infections. Patient does not know his father's side and whether he or the family has diabetes. Mother side has no history of diabetes. 02/20: Gap 19 overnight. He does note polydipsia and polyuria going on for several months. K2.7, Phos 2.5. He notes an appetite with nausea. He notes he sore throat and pain on swallowing. 02/21: Gap closed. His abdominal pain nausea improved. Potassium over 3 this morning. Glucose in the 300s despite coverage. Overall pain is improved. He has some tingling in his left foot. Intense diabetic education undertaken. Vitals/I&O Vitals/I&O: Vital Signs Date Time Temp Pulse Resp B/P (MAP) Pulse Ox O2 Delivery O2 Flow Rate FiO2 02/21/21 04:00 98.8 80 16 141/67 (91) 97 Room Air 98.8 I & O 02/20/21 02/20/21 02/21/21 15:00 23:00 07:00 Intake Total 1710 ml 600 ml 800 ml Output Total 900 ml 2900 ml 1200 ml Balance 810 ml -2300 ml -400 ml Physical Exam General: Alert, Oriented X3, Cooperative Heart: Regular rate, Normal S1, Normal S2 Lungs: Clear Abdomen: Normal bowel sounds, Soft Extremities: No clubbing, No cyanosis Skin: No rashes, No breakdown Labs Labs: Laboratory Tests Test 02/20/21 12:26 02/20/21 16:16 02/20/21 17:58 02/20/21 20:42 Glucose (Fingerstick) 209 mg/dL (70-99) 314 mg/dL (70-99) 345 mg/dL (70-99) Sodium Level 134 mmol/L (136-145) Potassium Level 3.2 mmol/L (3.5-5.1) Chloride Level 101 mmol/L (98-107) Carbon Dioxide Level 22 mmol/L (21-32) Anion Gap 11 (6-14) Blood Urea Nitrogen 5 mg/dL (8-26) Creatinine 0.6 mg/dL (0.7-1.3) Estimated GFR (Cockcroft-Gault) 171.8 Glucose Level 338 mg/dL (70-99) Calcium Level 7.3 mg/dL (8.5-10.1) Test 02/21/21 06:10 02/21/21 08:43 Sodium Level 137 mmol/L (136-145) Potassium Level 3.4 mmol/L (3.5-5.1) Chloride Level 101 mmol/L (98-107) Carbon Dioxide Level 24 mmol/L (21-32) Anion Gap 12 (6-14) Blood Urea Nitrogen 5 mg/dL (8-26) Creatinine 0.6 mg/dL (0.7-1.3) Estimated GFR (Cockcroft-Gault) 171.8 Glucose Level 307 mg/dL (70-99) Calcium Level 8.2 mg/dL (8.5-10.1) Phosphorus Level 3.1 mg/dL (2.6-4.7) Magnesium Level 1.9 mg/dL (1.8-2.4) Glucose (Fingerstick) 295 mg/dL (70-99) Assessment and Plan Assessmemt and Plan Problems Medical Problems: (1) Constipation Status: Acute (2) DKA, type 1 Status: Acute (3) Nausea and vomiting Status: Acute Comment Review of Relevant I have reviewed the following items arsenio (where applicable) has been applied. Medications: Current Medications Medications (Trade) Dose Ordered Sig/Ghulam Route PRN Reason Start Time Stop Time Status Last Admin Dose Admin Potassium Chloride/Water 100 ml @ 100 mls/hr Q1H IV 02/20/21 09:00 02/20/21 10:59 DC 02/20/21 10:43 Potassium Chloride (Klor-Con) 40 meq 1X ONCE PO 02/20/21 09:00 02/20/21 09:01 DC 02/20/21 08:31 Nystatin (Nystatin Oral Susp) 5 ml [id number] SWSW 02/20/21 09:00 02/20/21 21:03 Potassium Phos/ Sodium Phos (Phos-Nak) 1 pkt DAILY PO 02/20/21 09:00 02/21/21 08:45 DC 02/20/21 09:53 Insulin Human Lispro (HumaLOG) 0-9 UNITS TIDWMEALS SQ 02/20/21 12:00 02/20/21 18:05 Sodium Chloride 1,000 ml @ 125 mls/hr 1X ONCE IV 02/20/21 09:45 02/20/21 17:44 DC 02/20/21 09:53 Insulin Glargine (Lantus Syringe) 25 unit QHS SQ 02/20/21 21:00 02/20/21 21:03 Insulin Human Lispro (HumaLOG) 5 units TIDWMEALS SQ 02/20/21 17:00 02/20/21 18:05 Potassium Chloride (Klor-Con) 40 meq 1X ONCE PO 02/20/21 18:00 02/20/21 18:01 DC 02/20/21 18:04 Justifications for Admission Other Justification DARRYL BAJWA MD Feb 21, 2021 08:49
[2021-02-21] MEDS: NYSTATIN 100,000 UNITS/ML 5 ML ORAL.SUSP. SWSW SCH (08:59)
[2021-02-21 09:00] VITALS: BP 141/86
[2021-02-21 13:08] VITALS: BP 134/85
[2021-02-21] MEDS ORDERED: ACAR25TA9 PO (14:37)
--- NOTE | 2021-02-21 14:45 | PDOC3 ---
Discharge Summary Visit Information Date of Admission: Feb 18, 2021 Date of Discharge: Feb 21, 2021 Admitting Diagnosis: DKA Final Diagnosis Problems Medical Problems: (1) Constipation Status: Acute (2) DKA, type 1 Status: Acute (3) Nausea and vomiting Status: Acute Brief Hospital Course Allergies Allergies Coded Allergies Type Severity Reaction Last Updated Verified Penicillins Allergy Intermediate 02/18/21 Yes Vital Signs Vital Signs Date Time Temp Pulse Resp B/P (MAP) Pulse Ox O2 Delivery O2 Flow Rate FiO2 02/21/21 13:08 98.6 97 14 134/85 (101) 97 Room Air 98.6 Lab Results Laboratory Tests Test 02/19/21 16:30 02/19/21 17:15 02/19/21 18:27 02/19/21 19:41 Sodium Level 140 mmol/L (136-145) Potassium Level 2.8 mmol/L (3.5-5.1) Chloride Level 106 mmol/L (98-107) Carbon Dioxide Level 19 mmol/L (21-32) Anion Gap 15 (6-14) Blood Urea Nitrogen 7 mg/dL (8-26) Creatinine 0.8 mg/dL (0.7-1.3) Estimated GFR (Cockcroft-Gault) 123.2 Glucose Level 185 mg/dL (70-99) Calcium Level 7.9 mg/dL (8.5-10.1) Phosphorus Level 1.3 mg/dL (2.6-4.7) Magnesium Level 1.7 mg/dL (1.8-2.4) Glucose (Fingerstick) 141 mg/dL (70-99) 121 mg/dL (70-99) 169 mg/dL (70-99) Test 02/19/21 20:19 02/19/21 20:30 02/19/21 20:46 02/19/21 21:43 Glucose (Fingerstick) 222 mg/dL (70-99) 236 mg/dL (70-99) 198 mg/dL (70-99) Sodium Level 139 mmol/L (136-145) Potassium Level 2.6 mmol/L (3.5-5.1) Chloride Level 104 mmol/L (98-107) Carbon Dioxide Level 19 mmol/L (21-32) Anion Gap 16 (6-14) Blood Urea Nitrogen 7 mg/dL (8-26) Creatinine 0.8 mg/dL (0.7-1.3) Estimated GFR (Cockcroft-Gault) 123.2 Glucose Level 220 mg/dL (70-99) Calcium Level 7.5 mg/dL (8.5-10.1) Phosphorus Level 1.5 mg/dL (2.6-4.7) Magnesium Level 2.1 mg/dL (1.8-2.4) Test 02/19/21 22:53 02/20/21 00:05 02/20/21 01:05 02/20/21 02:09 Glucose (Fingerstick) 151 mg/dL (70-99) 182 mg/dL (70-99) 226 mg/dL (70-99) 179 mg/dL (70-99) Test 02/20/21 03:05 02/20/21 03:59 02/20/21 05:05 02/20/21 05:58 Glucose (Fingerstick) 153 mg/dL (70-99) 133 mg/dL (70-99) 113 mg/dL (70-99) 112 mg/dL (70-99) Test 02/20/21 06:55 02/20/21 07:03 02/20/21 08:18 02/20/21 12:26 Sodium Level 141 mmol/L (136-145) Potassium Level 2.7 mmol/L (3.5-5.1) Chloride Level 108 mmol/L (98-107) Carbon Dioxide Level 19 mmol/L (21-32) Anion Gap 14 (6-14) Blood Urea Nitrogen 3 mg/dL (8-26) Creatinine 0.6 mg/dL (0.7-1.3) Estimated GFR (Cockcroft-Gault) 171.8 Glucose Level 125 mg/dL (70-99) Calcium Level 8.3 mg/dL (8.5-10.1) Phosphorus Level 2.5 mg/dL (2.6-4.7) Magnesium Level 1.9 mg/dL (1.8-2.4) Glucose (Fingerstick) 109 mg/dL (70-99) 124 mg/dL (70-99) 209 mg/dL (70-99) Test 02/20/21 16:16 02/20/21 17:58 02/20/21 20:42 02/21/21 06:10 Sodium Level 134 mmol/L (136-145) 137 mmol/L (136-145) Potassium Level 3.2 mmol/L (3.5-5.1) 3.4 mmol/L (3.5-5.1) Chloride Level 101 mmol/L (98-107) 101 mmol/L (98-107) Carbon Dioxide Level 22 mmol/L (21-32) 24 mmol/L (21-32) Anion Gap 11 (6-14) 12 (6-14) Blood Urea Nitrogen 5 mg/dL (8-26) 5 mg/dL (8-26) Creatinine 0.6 mg/dL (0.7-1.3) 0.6 mg/dL (0.7-1.3) Estimated GFR (Cockcroft-Gault) 171.8 171.8 Glucose Level 338 mg/dL (70-99) 307 mg/dL (70-99) Calcium Level 7.3 mg/dL (8.5-10.1) 8.2 mg/dL (8.5-10.1) Glucose (Fingerstick) 314 mg/dL (70-99) 345 mg/dL (70-99) Phosphorus Level 3.1 mg/dL (2.6-4.7) Magnesium Level 1.9 mg/dL (1.8-2.4) Test 02/21/21 08:43 02/21/21 12:59 Glucose (Fingerstick) 295 mg/dL (70-99) 271 mg/dL (70-99) Laboratory Tests Test 02/20/21 16:16 02/20/21 17:58 02/20/21 20:42 02/21/21 06:10 Sodium Level 134 mmol/L (136-145) 137 mmol/L (136-145) Potassium Level 3.2 mmol/L (3.5-5.1) 3.4 mmol/L (3.5-5.1) Chloride Level 101 mmol/L (98-107) 101 mmol/L (98-107) Carbon Dioxide Level 22 mmol/L (21-32) 24 mmol/L (21-32) Anion Gap 11 (6-14) 12 (6-14) Blood Urea Nitrogen 5 mg/dL (8-26) 5 mg/dL (8-26) Creatinine 0.6 mg/dL (0.7-1.3) 0.6 mg/dL (0.7-1.3) Estimated GFR (Cockcroft-Gault) 171.8 171.8 Glucose Level 338 mg/dL (70-99) 307 mg/dL (70-99) Calcium Level 7.3 mg/dL (8.5-10.1) 8.2 mg/dL (8.5-10.1) Glucose (Fingerstick) 314 mg/dL (70-99) 345 mg/dL (70-99) Phosphorus Level 3.1 mg/dL (2.6-4.7) Magnesium Level 1.9 mg/dL (1.8-2.4) Test 02/21/21 08:43 02/21/21 12:59 Glucose (Fingerstick) 295 mg/dL (70-99) 271 mg/dL (70-99) Brief Hospital Course Mr Amezquita is a 20yo male with PMHx spinal desmoid tumor, obesity who comes to ED 02/18/2021 c/o intractable nausea and vomiting, found in DKA. Treated with insulin GTT. Denies any fevers, chest pain, drug use, diarrhea, constipation, hematuria or dysuria or skin infections. Patient does not know his father's side and whether he or the family has diabetes. Mother side has no history of diabetes. 02/20: Gap 19 overnight. He does note polydipsia and polyuria going on for several months. K2.7, Phos 2.5. He notes an appetite with nausea. He notes he sore throat and pain on swallowing. 02/21: Gap closed. His abdominal pain nausea improved. Potassium over 3 this morning. Glucose in the 300s despite coverage. Overall pain is improved. He has some tingling in his left foot. Intense diabetic education undertaken. Family bedside. Will initiate on 3 months of insulin therapy a 30 units nightly Lantus and sliding scale 09 units +5 units with meals of lispro. Also initiate acarbose and establish primary care outpatient. Problem list: Intractable nausea vomiting secondary to DKA without delirium Severe dehydration and volume depletion SUNSHINE due to vasomotor nephropathy Hyperglycemia Transaminitis New onset diabetes mellitus - A1c 12.5 Constipation Thrush - nystatin swsw improved. Greater than 30 minutes spent on d/c home with self care. Discharge Information Condition at Discharge: Improved Follow Up: Weeks (1) Disposition/Orders: D/C to Home Scheduled Acarbose (Precose) 25 Mg Tablet, 1 TAB PO BID for diabetes for 30 Days, #60 Ref 5 Prescribed by: DARRYL BAJWA MD on 02/21/21 1437 Info (No Known Medications Prior To Admisstion) Each, 1 EACH MC 1X for no home meds, (Reported) Entered as Reported by: WON PUGH on 02/20/2136 Last Action: New Order on 02/20/2136 by WON PUGH Insulin Aspart (Novolog Flexpen) 100 Unit/1 Ml Insuln.pen, 0-9 UNIT SQ QIDACHS for DM2 for 30 Days, #3 Ref 3 Prescribed by: DARRYL BAJWA MD on 02/20/21 0834 Insulin Glargine,Hum.rec.anlog (Lantus Solostar) 100 Unit/1 Ml Insuln.pen, 30 UNIT SQ QHS for Diabetes type 2, #15 Ref 3 Prescribed by: DARRYL BAJWA MD on 02/20/21 0830 Durable Medical Equipment Blood-Glucose Meter (Contour Next Glucose Meter) 1 Each Kit, EACH QIDACHS for Diabetes type 2, #1, (DME) QID AC glucose checks Prescribed by: DARRYL BAJWA MD on 02/20/21 0834 Justicifation of Admission Dx: Justifications for Admission: Justification of Admission Dx: Yes DARRYL BAJWA MD Feb 21, 2021 14:45
--- NOTE | 2021-02-21 15:45 | NUR ---
SS following up with discharge planning. SS reviewed pt chart and discussed with pt RN. Pt is currently on room air. COVID19 negative. Discharge order on the chart for home with self care.
--- NOTE | 2021-02-21 16:10 | NUR ---
Extensive discharge education done. Multiple education handouts, insulin and blood glucose logs given to pt. Pt shown apps on phone to help with carb counting, glucose tracking and meal planning. Insulin administration, glucose testing and sliding scale education done. Diet education also completed. All questions answered. Pt education materials, discharge instructions, rxs and all belongings sent with pt. Pt ambulated with mom and RN to car.
== END 2021-02-21 16:10 | disposition home or self-care (01) | DRG 637 ==
LOC: ER 19:33 → ED HOLD 21:12 → 1 WEST ICU 02-19 21:58
PROVIDERS: ADMIT Internal Medicine; ATTEND Internal Medicine
DX: E10.10 Type 1 diabetes mellitus with ketoacidosis without coma (principal); N17.0 Acute kidney failure with tubular necrosis; B37.9 Candidiasis, unspecified; K59.00 Constipation, unspecified; Z20.822 Contact with and (suspected) exposure to COVID-19; Z88.0 Allergy status to penicillin; E86.0 Dehydration; E86.9 Volume depletion, unspecified
CPT/HCPCS: 36415; 74022; 80048; 80053; 80307; 81001; 82962; 83036; 83690; 83735; 84100; 85025; 87426; 87804; 96361; 96374; 96375; G0480; J1815; J2060; J2405; J2765; J3475; J3480; J7030; J7042; J7050; U0003; U0005; 99285-25; G0378